=== PATIENT | male | born 1970 ===

== ENCOUNTER 2024-05-22 15:41 | Outpatient (REF) | payer SELFPAY ==
[2024-05-22 16:47] LABS: MANUAL DIFF FLAG NO
[2024-05-22 16:54] LABS: Eosinophils Absolute Auto 0.1 X10*3/uL (0.0-0.4); Eosinophils Percent Auto 3.1 % (0-4); Hematocrit 43.3 % (42.0-52.0); Hemoglobin 15.7 g/dl (14.0-18.0); Imm Gran Abs Auto 0.02 X10*3/uL (0.00-0.03); Imm Gran Pct Auto 0.5 % (0.0-0.4); Lymphocytes Absolute Auto 0.7 X10*3/uL (1.2-4.9); Lymphocytes Percent Auto 19.3 % (20-40); Mean Corpuscular HGB Conc 36.3 g/dl (31.0-36.0); Mean Corpuscular Hemoglobin 32.7 pg (27.0-33.0); Mean Corpuscular Volume 90.2 fL (80.0-98.0); Mean Platelet Volume 9.4 fL (9.4-12.4); Monocytes Absolute Auto 0.5 X10*3/uL (0.1-1.2); Monocytes Percent Auto 12.8 % (2-11); Neutrophils Absolute Auto 2.4 x10*3/uL (2.0-8.3); Neutrophils Percent Auto 63.3 % (45-73); Platelet Count 224 X10*3/uL (160-400); Red Cell Distribution Width 14.6 % (11.0-16.0); White Blood Count 3.8 X10*3/uL (4.8-10.8)
[2024-05-22 17:28] LABS: Alanine Aminotransferase 39 U/L (0-40); Albumin Level 4.3 g/dL (3.5-5.0); Alkaline Phosphatase 109 U/L (39-117); Anion Gap 11 (12-20); Aspartate Amino Transferase 31 U/L (5-37); Bilirubin Total 0.4 mg/dL (0.0-1.0); Blood Urea Nitrogen 15 mg/dL (9-16); Calcium 9.2 mg/dL (8.4-10.2); Carbon Dioxide 25 mmol/L (22-29); Chloride 105 mmol/L (96-108); Estimated Glomerular Filt Rate > 60; Glucose Random 83 mg/dL (60-115); Potassium 3.6 mmol/L (3.3-5.1); Sodium 137 mmol/L (135-145); Total Protein 9.7 g/dL (6.5-8.0)
[2024-05-23 07:56] LABS: Syphilis Screen Nonreactive (Nonreactive)
[2024-05-23 08:02] LABS: Hepatitis A Antibody IgG REACTIVE (Nonreactive); ~Hepatitis A Antibody IgG 9.44 S/CO (0.00-0.99)
[2024-05-23 08:04] LABS: HBS Num1 48.46 mIU/mL (0-7.99); HBc Num1 11.26 S/CO (0.00-0.79); HBsAGNum1 0.39 S/CO (0.00-0.99); Hepatitis B Surface Antigen Negative (Negative); ~HepC Num1 2.71 S/CO (0.00-0.79); ~Hepatitis B Surface Antibody REACTIVE (Nonreactive); ~Hepatitis C Antibody Reactive (Nonreactive)
[2024-05-23 10:43] LABS: HBc Num2 11.04 S/CO; HBc Num3 11.06 S/CO; Hepatitis B Core Antibody Reactive (Nonreactive)
[2024-05-23 12:42] LABS: Cytomegalovirus Ab IgG >10.00 U/mL; Cytomegalovirus Ab IgM <30.00 AU/mL
[2024-05-23 15:48] LABS: CT PCR NOT DETECTED (Not Detect.); NG PCR NOT DETECTED (Not Detect.)
[2024-05-24 17:43] LABS: HIV RNA PCR Qn Copies 22 copies/mL (NOT DETECTED); HIV RNA PCR Qn Log Copies 1.34 (NOT DETECTED)
[2024-05-25 21:42] LABS: TS Negative Control Passed; TS Panel A 0; TS Panel B 0; TS Positive Control Passed; TSpotTB Negative (Negative)
[2024-05-26 14:19] LABS: HCV Log PCR <1.18 NOT DETECTED Log IU/mL (NOT DETECTED); HepC Viral Load <15 NOT DETECTED IU/mL (NOT DETECTED)
[2024-05-26 18:58] LABS: Absolute CD3 Count 429 cells/uL (840-3060); Absolute CD4 Count 131 cells/uL (490-1740); Absolute CD8 Count 297 cells/uL (180-1170); Absolute Lymphocytes 668 cells/uL (850-3900); CD4 CD8 Ratio 0.44 (0.86-5.00); Percent CD3 Cells 64 % (57-85); Percent CD4 Cells 20 % (30-61); Percent CD8 Cells 45 % (12-42)
[2024-05-30 02:18] LABS: HIV Genotype NOT DETECTED
[2024-05-30 08:03] LABS: Value of Last HIV Viral Load NG copies/mL
== END 2024-05-22 15:42 | disposition home or self-care (01) ==
LOC: HO.HHCL 15:41
PROVIDERS: Visit Provider Internal Medicine
DX: B20 Human immunodeficiency virus [HIV] disease (principal); Z11.59 Encounter for screening for other viral diseases; Z72.89 Other problems related to lifestyle
CPT/HCPCS: 36415; 80053; 82955; 85025; 86359; 86360; 86481; 86644; 86645; 86704; 86706; 86708; 86780; 86787; 86803; 87340; 87491; 87522; 87536; 87591; 87900; 87901; 87906

== ENCOUNTER 2024-05-23 14:11 | Outpatient (REF) | payer MEDICAID, SELFPAY ==
[2024-05-24 11:35] LABS: Adenovirus PCR Not Detected (Not Detect.); Bordetella parapertussis PCR Not Detected (Not Detect.); Bordetella pertussis PCR Not Detected (Not Detect.); Chlamydia pneumoniae PCR Not Detected (Not Detect.); Coronavirus 229E PCR Not Detected (Not Detect.); Coronavirus HKU1 PCR Not Detected (Not Detect.); Coronavirus NL63 PCR Not Detected (Not Detect.); Coronavirus OC43 PCR Not Detected (Not Detect.); Human metapneumovirus PCR Not Detected (Not Detect.); Influenza A PCR Not Detected (Not Detect.); Influenza B PCR Not Detected (Not Detect.); Mycoplasma pneumoniae PCR Not Detected (Not Detect.); Parainfluenza 1 PCR Not Detected (Not Detect.); Parainfluenza 2 PCR Not Detected (Not Detect.); Parainfluenza 3 PCR Not Detected (Not Detect.); Parainfluenza 4 PCR Not Detected (Not Detect.); RSV PCR Detected (Not Detect.); Rhino/Enterovirus PCR Not Detected (Not Detect.)
[2024-05-24 12:46] LABS: SARS-CoV-2 PCR Not Detected (Not Detect.)
== END 2024-05-23 14:12 | disposition home or self-care (01) ==
LOC: HO.HHCLNP 14:11
PROVIDERS: Visit Provider Family Medicine
DX: J06.9 Acute upper respiratory infection, unspecified (principal); Z11.52 Encounter for screening for COVID-19; Z13.83 Encounter for screening for respiratory disorder NEC
CPT/HCPCS: 87633

== ENCOUNTER 2024-05-27 12:02 | Emergency (ER) | payer OTHER, SELFPAY ==
--- NOTE | ~2024-05-27 | XR_ITS ---
EXAMINATION: XR CHEST CLINICAL INFORMATION: SOB COMPARISON: None available. TECHNIQUE: 2 views of the chest were obtained. FINDINGS: Pulmonary reticular pattern with the patchy and haziness in the right lower lung lobe. No pneumothorax. No pleural effusion. Cardiomediastinal silhouette is normal in size. Osseous structures are intact. XR/XR chest 2V IMPRESSION: Concerning multifocal pneumonia involving mostly the right lower lung lobe. Electronically signed by: Carlitos Leong MD 05/27/2024 01:20 PM EST
[2024-05-27 12:13] VITALS: BP 169/111; PULSE 77; RESP 20; TEMP 36.6; O2SAT 99; BMI 24.7
--- NOTE | 2024-05-27 12:17 | ECG_ITS ---
Test Reason : hypertension Blood Pressure : */* mmHG Vent. Rate : 67 BPM Atrial Rate : 67 BPM P-R Int : 204 ms QRS Dur : 84 ms QT Int : 396 ms P-R-T Axes : 43 49 40 degrees QTcB Int : 418 ms Normal sinus rhythm Normal ECG No previous ECGs available Referred By: Generic ED Physician Electronically Signed By: ELI GRISSOM
--- NOTE | 2024-05-27 12:32 | ED_ITS ---
HPI - General Adult General Chief complaint: General Medical Stated complaint: Hi blood pressure Time Seen by Provider: 05/27/24 16:49 Source: patient Mode of arrival: ambulatory Limitations: no limitations History of Present Illness ED Provider: HPI narrative: Patient with history of HIV detectable viral load, last CD4 count of 131 on 05/22/2024, hypertension noncompliant to his HIV medication in the past not taking it for last 1 month also noncompliant to his antihypertension medication as he does not have insurance at this time did not take his medication for last 1 week comes here as unable to get the medication again also been tested positive for RSV on 05/22 still coughing no phlegm no fever no chills comes here to get blood pressure medication does on arrival patient's blood pressure was 169/111 no headache no nausea no vomiting Related Data Previous Rx's ?Medication ?Instructions ?Recorded albuterol sulfate 90 mcg/actuation 2 puff inhalation Q6H PRN 05/27/24 aerosol inhaler shortness of breath or wheezing #8.5 grams amlodipine 5 mg tablet 5 mg PO DAILY #30 tabs 05/27/24 azithromycin 250 mg tablet 250 mg PO DAILY 4 days #4 tabs 05/27/24 (Zithromax) benzonatate 200 mg capsule 200 mg PO TID PRN cough #30 caps 05/27/24 cefuroxime axetil 500 mg tablet 500 mg PO BID 7 days #14 tabs 05/27/24 Allergies Allergy/AdvReac Type Severity Reaction Status Date / Time Penicillins Allergy Rash Verified 05/27/24 12:17 Review of Systems 2 Review of Systems: Yes all other systems are reviewed and are negative [facility] Past Medical History Medical History (Updated 05/27/24 @ 19:54 by Brandon Garcia MD) HIV (human immunodeficiency virus infection) Physical Exam ED Vital Signs: Vital Signs - 24 hr 05/27/24 12:13 05/27/24 16:13 05/27/24 17:40 Temperature 97.9 F 97.7 F Pulse Rate 77 90 Respiratory Rate 20 16 Blood Pressure 169/111 H 155/106 H 162/115 H Pulse Oximetry 99 95 Oxygen Delivery Method Room Air Room Air 05/27/24 18:04 05/27/24 19:16 Temperature 98.6 F Pulse Rate 83 83 Respiratory Rate 18 18 Blood Pressure 162/115 H Pulse Oximetry 97 Oxygen Delivery Method Room Air BMI result Body Mass Index 24.7 Appearance: Alert. Oriented X3. No acute distress. Eyes: No pallor or ictal ENT: Pharynx normal. Oral Mucosa moist Neck: Normal inspection. Neck supple. CVS: Normal heart rate and rhythm. Pulses normal. Respiratory: No respiratory distress. Equal air entry bilateral, bilateral prolonged expiration with occasional rhonchi coughing frequently Abdomen: Soft and nontender. Bowel sounds are present, no mass palpable, no CVA tenderness Skin: Skin warm and dry. Normal skin color. Normal skin turgor. Extremities: No lower extremity edema. No calf tenderness Neuro: Oriented X 3. No motor deficit. No sensory deficit.No cerebellar signs , cranial nerves II-XII intact Medications Administered Discontinued Medications Generic Name Dose Route Start Last Admin Trade Name Freq PRN Reason Stop Dose Admin Albuterol Sulfate 2 puff 05/27/24 17:05/27/24 17:41 Albuterol Sulfate 90 Mcg 8 Gm Inhaler INHALE 05/27/24 17:26 2 puff ONCE ONE Administration Amlodipine Besylate 5 mg 05/27/24 17:25 05/27/24 17:40 Amlodipine Besylate 5 Mg Tablet PO 05/27/24 17:26 5 mg ONCE ONE Administration Protocol Azithromycin 500 mg 05/27/24 17:25 05/27/24 17:40 Azithromycin 500 Mg Tablet PO 05/27/24 17:26 500 mg ONCE ONE Administration Benzonatate 200 mg 05/27/24 17:47 05/27/24 17:51 Benzonatate 100 Mg Capsule PO 05/27/24 17:48 200 mg ONCE ONE Administration Cefuroxime Axetil 500 mg 05/27/24 17:25 05/27/24 17:40 Cefuroxime Axetil 500 Mg Tablet PO 05/27/24 17:26 500 mg ONCE ONE Administration Albuterol Sulfate 2.5 mg/ 0 mg 05/27/24 17:05/27/24 18:01 Albuterol/Ipratropium 3 ml INHALE 05/27/24 17:26 1 dose ONCE ONE Administration Dexamethasone 10 mg 05/27/24 17:25 05/27/24 17:40 Dexamethasone 2 Mg Tablet PO 05/27/24 17:26 10 mg ONCE ONE Administration Guaifenesin/Codeine Phosphate 10 ml 05/27/24 17:26 05/27/24 17:44 Guaifen/Codeine Sf 200/20/10ml 10 Ml Liquid PO 05/27/24 17:27 Not Given ONCE ONE Medical Decision Making Medical Decision Making [facility] Narrative: Patient with HIV with RSV infection afebrile saturating 95% at room air chest x- ray showed infiltrate specially in the right lung at this time patient is not toxic will give him inhaler and short course of antibiotics to cover superadded infection will also give him a dose of amlodipine Lab Data [facility] Lab Attestation statement: I reviewed the patient's lab results. 05/27/24 12:53 05/27/24 12:53 Labs: Lab Results 05/27/24 Range/Units 12:53 WBC 4.8 (4.8-10.8) X10*3/uL RBC 4.79 (4.60-5.80) X10*6/uL Hgb 15.6 (14.0-18.0) g/dl Hct 42.5 (42.0-52.0) % MCV 88.7 (80.0-98.0) fL MCH 32.6 (27.0-33.0) pg MCHC 36.7 H (31.0-36.0) g/dl RDW 13.9 (11.0-16.0) % Plt Count 160 D (160-400) X10*3/uL MPV 8.6 L (9.4-12.4) fL Immature Gran % (Auto) 0.2 (0.0-0.4) % Neut % (Auto) 56.4 (45-73) % Lymph % (Auto) 34.9 (20-40) % Kleberg % (Auto) 5.8 (2-11) % Eos % (Auto) 2.3 (0-4) % Baso % (Auto) 0.4 (0-2) % Lymph # (Auto) 1.7 (1.2-4.9) X10*3/uL Kleberg # (Auto) 0.3 (0.1-1.2) X10*3/uL Eos # (Auto) 0.1 (0.0-0.4) X10*3/uL Baso # (Auto) 0.0 (0.0-0.2) X10*3/uL Abs Immat Gran (auto) 0.01 (0.00-0.03) X10*3/uL Absolute Neuts (auto) 2.7 (2.0-8.3) x10*3/uL Absolute Nucleated RBC 0.000 (0.0-0.012) X10*3/uL Nucleated RBC % (auto) 0.0 (0.0-0.2) /100WBC Sodium 139 (135-145) mmol/L Potassium 3.9 (3.3-5.1) mmol/L Chloride 105 (96-108) mmol/L Carbon Dioxide 27 (22-29) mmol/L Anion Gap 11 L (12-20) BUN 20 H (9-16) mg/dL Creatinine 0.87 (0.5-1.4) mg/dL Estim Creat Clear Calc 120.5 Estimated GFR > 60 Random Glucose 92 (60-115) mg/dL Calcium 8.9 (8.4-10.2) mg/dL Total Bilirubin 0.6 (0.0-1.0) mg/dL AST 44 H (5-37) U/L ALT 53 H (0-40) U/L Alkaline Phosphatase 107 (39-117) U/L Total Protein 9.7 H (6.5-8.0) g/dL Albumin 4.1 (3.5-5.0) g/dL Influenza Type A (PCR) NEGATIVE (Negative) Influenza Type B (PCR) NEGATIVE (Negative) RSV RNA Qual (PCR) POSITIVE A (Negative) SARS-CoV-2 RNA (RT-PCR) NEGATIVE (Negative) Radiology Impression Discussion of test interpretation with radiology: I have reviewed the radiologist's reading. Radiologist Impression: [address] [address] XRay Report Signed Patient: Angel Blue MR#: [id number] : 1970 Acct:[id number] Age/Sex: 53 / M ADM Date: 05/27/24 Loc: .ED Attending Dr: Ordering Physician: Elizabeth Juan Date of Service: 05/27/24 Procedure(s): XR chest 2V Accession Number(s): [id number] cc: Elizabeth Juan; Physician,Unknown ~ EXAMINATION: XR CHEST CLINICAL INFORMATION: SOB COMPARISON: None available. TECHNIQUE: 2 views of the chest were obtained. FINDINGS: Pulmonary reticular pattern with the patchy and haziness in the right lower lung lobe. No pneumothorax. No pleural effusion. Cardiomediastinal silhouette is normal in size. Osseous structures are intact. XR/XR chest 2V IMPRESSION: Concerning multifocal pneumonia involving mostly the right lower lung lobe. Electronically signed by: Carlitos Leong MD 05/27/2024 01:20 PM [facility] Discharge Plan Discharge Clinical Impression: Respiratory syncytial virus (RSV) bronchiolitis, Hypertension Patient Disposition: Home, Self-Care Instructions: Respiratory Syncytial Virus (ED), Acute Bronchitis (ED), Chronic Hypertension (ED) Additional Instructions: Your have pneumonia , bronchitis from viral infection Take antibiotics and use inhaler Medication for blood pressure as prescribed your blood pressure should be less than 135/85 Report to the ER if increased shortness a breath Cough drops as prescribed Prescriptions: New benzonatate 200 mg capsule 200 mg PO TID PRN (Reason: cough) Qty: 30 0RF cefuroxime axetil 500 mg tablet 500 mg PO BID 7 Days Qty: 14 0RF azithromycin [Zithromax] 250 mg tablet 250 mg PO DAILY 4 Days Qty: 4 0RF Rx Instructions: start on day 2 of therapy amlodipine 5 mg tablet 5 mg PO DAILY Qty: 30 0RF albuterol sulfate 90 mcg/actuation HFA aerosol inhaler 2 puff inhalation Q6H PRN (Reason: shortness of breath or wheezing) Qty: 8.5 0RF Interventions: ED Discharge Assessment Last Done: 05/27/24 19:16 Discharge Date/Time: 05/27/24 19:17 Print Language: Moroccan
[2024-05-27 12:57] LABS: MANUAL DIFF FLAG NO
[2024-05-27 12:58] LABS: Basophils Percent Auto 0.4 % (0-2); Eosinophils Absolute Auto 0.1 X10*3/uL (0.0-0.4); Eosinophils Percent Auto 2.3 % (0-4); Hematocrit 42.5 % (42.0-52.0); Hemoglobin 15.6 g/dl (14.0-18.0); Imm Gran Abs Auto 0.01 X10*3/uL (0.00-0.03); Imm Gran Pct Auto 0.2 % (0.0-0.4); Lymphocytes Absolute Auto 1.7 X10*3/uL (1.2-4.9); Lymphocytes Percent Auto 34.9 % (20-40); Mean Corpuscular HGB Conc 36.7 g/dl (31.0-36.0); Mean Corpuscular Hemoglobin 32.6 pg (27.0-33.0); Mean Corpuscular Volume 88.7 fL (80.0-98.0); Mean Platelet Volume 8.6 fL (9.4-12.4); Monocytes Absolute Auto 0.3 X10*3/uL (0.1-1.2); Monocytes Percent Auto 5.8 % (2-11); Neutrophils Absolute Auto 2.7 x10*3/uL (2.0-8.3); Neutrophils Percent Auto 56.4 % (45-73); Platelet Count 160 X10*3/uL (160-400); Red Blood Count 4.79 X10*6/uL (4.60-5.80); Red Cell Distribution Width 13.9 % (11.0-16.0); SCAN SMEAR FLAG 1; White Blood Count 4.8 X10*3/uL (4.8-10.8)
[2024-05-27 13:17] LABS: Alanine Aminotransferase 53 U/L (0-40); Albumin Level 4.1 g/dL (3.5-5.0); Alkaline Phosphatase 107 U/L (39-117); Anion Gap 11 (12-20); Aspartate Amino Transferase 44 U/L (5-37); Bilirubin Total 0.6 mg/dL (0.0-1.0); Blood Urea Nitrogen 20 mg/dL (9-16); Calcium 8.9 mg/dL (8.4-10.2); Carbon Dioxide 27 mmol/L (22-29); Chloride 105 mmol/L (96-108); Creatinine Clr Calc Pharmacy 120.5; Estimated Glomerular Filt Rate > 60; Glucose Random 92 mg/dL (60-115); Potassium 3.9 mmol/L (3.3-5.1); Sodium 139 mmol/L (135-145); Total Protein 9.7 g/dL (6.5-8.0)
[2024-05-27 13:44] LABS: Influenza A PCR NEGATIVE (Negative); Influenza B PCR NEGATIVE (Negative); Resp Syncy Virus RNA Qual PCR POSITIVE (Negative); SARS COV2 PCR INHOUSE NEGATIVE (Negative)
[2024-05-27 16:13] VITALS: BP 155/106; PULSE 90; RESP 16; TEMP 36.5; O2SAT 95
[2024-05-27 17:40] VITALS: BP 162/115
[2024-05-27] MEDS: amLODIPine Besylate 5 MG TABLET PO (17:40)
[2024-05-27] MEDS: dexAMETHasone 2 MG TABLET 10 MG PO (17:40)
[2024-05-27] MEDS: Azithromycin 500 MG TABLET PO (17:40)
[2024-05-27] MEDS: cefuroxime axetiL 500 MG TABLET PO (17:40)
[2024-05-27] MEDS: Albuterol Sulfate 90 MCG 8 GM INHALER 2 PUFF INHALE (17:41)
[2024-05-27] MEDS: Benzonatate 100 MG CAPSULE 200 MG PO (17:51)
[2024-05-27] MEDS: Albuterol Sulfate 2.5 MG, Albuterol/Iprat 2.5/0.5MG 3 ML 3 ML INHALE (18:01)
[2024-05-27 18:04] VITALS: PULSE 83; RESP 18; O2SAT 93
[2024-05-27 19:16] VITALS: BP 162/115; PULSE 83; RESP 18; TEMP 37; O2SAT 97
== END 2024-05-27 19:17 | disposition home or self-care (01) ==
PROVIDERS: Physician Assistant Medical; Emergency Provider Internal Medicine
DX: J21.0 Acute bronchiolitis due to respiratory syncytial virus (principal); I10 Essential (primary) hypertension; R06.02 Shortness of breath; R05.9 Cough, unspecified; B20 Human immunodeficiency virus [HIV] disease; Z03.818 Encounter for observation for suspected exposure to other biological agents ruled out; Z91.148 Patient's other noncompliance with medication regimen for other reason
CPT/HCPCS: 0241U; 36415; 71046; 80053; 85025; 93005; 94640; 99284; J8540

== ENCOUNTER → 2024-05-27 12:17 | Outpatient (BNV) | payer OTHER, SELFPAY | PROVIDERS: Emergency Provider Internal Medicine; Visit Provider Internal Medicine | DX: I10 Essential (primary) hypertension (principal) | CPT/HCPCS: 93010 ==

== ENCOUNTER → 2024-05-27 12:38 | Outpatient (BNV) | payer MEDICARE, MEDICAID, SELFPAY | PROVIDERS: Visit Provider Radiology Diagnostic Radiology | DX: R05.9 Cough, unspecified (principal) | CPT/HCPCS: 71046 ==

== ENCOUNTER 2024-06-03 13:43 | Emergency (ER) | payer MEDICARE, SELFPAY ==
--- NOTE | ~2024-06-03 | XR_ITS ---
EXAMINATION: XR CHEST CLINICAL INFORMATION: cough, weakness COMPARISON: 05/27/2024. TECHNIQUE: 2 views of the chest were obtained. FINDINGS: The cardiac, hilar, and mediastinal contours are normal. The lungs demonstrate stable subtle opacity right lung base and a more linear appearing left upper lobe opacity, without change. These may be chronic in nature. These are not well seen on the lateral projection. There is no pneumothorax or pleural effusion. There is no focal osseous or soft tissue abnormality. Cholecystectomy clips noted. XR/XR chest 2V IMPRESSION: No significant interval change. Subtle opacity right base and linear opacity left upper lobe persist and may be chronic in nature. Consider evaluation with CT if clinical management would be altered. Electronically signed by: Ry Wang MD 06/03/2024 02:56 PM DAVID PUGA
--- NOTE | 2024-06-03 14:07 | ED_ITS ---
HPI - General Adult General Chief complaint: Recheck/Abnormal Lab/Rx Stated complaint: CP,BOWERS,NEW BP MED,FROM WALK IN PER EMS Time Seen by Provider: 06/03/24 14:07 Source: patient and EMS Mode of arrival: EMS Limitations: no limitations History of Present Illness ED Provider: Nessa Pandya PA-C HPI narrative: Patient is a 53 year old assigned male at with a history of HTN and recent RSV diagnosis presenting to the emergency department today with a headache and elevated blood pressure reading at the walk in clinic. Patient states that he had a headache, went to the walk in clinic, and they told him his blood pressure was high so he should come here. Patient denies any dizziness, lightheadedness, abdominal pain, nausea, vomiting, fever, chills, blurry vision, double vision, loss of vision, chest pain, difficulty breathing, shortness of breath, back pain, night sweats, pain with urination, increased urinary frequency, increased urinary urgency, blood in his urine or stool, syncope or a near syncopal episode, recent trauma or falls, bowel incontinence, bladder incontinence, or any other complaints at this time. Relieving factors: none Exacerbating factors: none Associated symptoms: denies other symptoms Treatments prior to arrival: none Related Data Previous Rx's ?Medication ?Instructions ?Recorded albuterol sulfate 90 mcg/actuation 2 puff inhalation Q6H PRN 05/27/24 aerosol inhaler shortness of breath or wheezing #8.5 grams amlodipine 5 mg tablet 5 mg PO DAILY #30 tabs 05/27/24 azithromycin 250 mg tablet 250 mg PO DAILY 4 days #4 tabs 05/27/24 (Zithromax) benzonatate 200 mg capsule 200 mg PO TID PRN cough #30 caps 05/27/24 cefuroxime axetil 500 mg tablet 500 mg PO BID 7 days #14 tabs 05/27/24 Allergies Allergy/AdvReac Type Severity Reaction Status Date / Time Penicillins Allergy Rash Verified 06/03/24 14:43 Review of Systems 2 Constitutional: Constitutional: Reports no additional constitutional complaints, Denies chills, Denies fever(s), Reports headache(s) and Denies night sweats Eyes: Eyes: Reports no additional eye complaints, Denies blurry vision, Denies change in vision, Denies diplopia, Denies eye discharge, Denies loss of vision and Denies eye pain ENT: Denies dizziness and Reports headache(s) Cardiovascular: Cardiovascular: Reports no additional cardiovascular complaints, Denies chest pain, Denies lightheadedness, Denies Loss of Consciousness and Denies dyspnea Respiratory: Respiratory: Reports no additional respiratory complaints and Denies dyspnea Gastrointestinal: Gastrointestinal: Reports no additional gastrointestinal complaints, Denies abdominal pain, Denies melena, Denies hematochezia, Denies change in bowel habits and Denies change in stool character Genitourinary: Genitourinary: Reports no additional male genitourinary complaints, Denies hematuria, Denies oliguria, Denies difficulty urinating, Denies dysuria, Denies urinary frequency, Denies urinary hesitancy, Denies urinary incontinence and Denies urinary urgency Musculoskeletal: Musculoskeletal: Reports no additional musculoskeletal complaints, Denies numbness and Denies tingling Neurologic: Denies dizziness, Reports headache(s), Denies loss of vision, Denies numbness and Denies tingling Psychiatric: Psychiatric: Reports no additional psychiatric complaints Endocrine: Endocrine: Reports no additional endocrine complaints Hematologic/Lymphatic: Hematologic/Lymphatic: Reports no additional hematologic/lymphatic complaints Allergic/Immunologic: Allergic/Immunologic: Reports no additional allergic/immunologic complaints PMFSH Past Medical History Attestation statement: The following information was validated with the patient. Source: old records reviewed and nursing notes reviewed Medical History HIV (human immunodeficiency virus infection) Social History Social History Advance Directives: No Advance Directives Information Provided: No Physical Exam ED Vital Signs: Vital Signs - 24 hr 06/03/24 14:15 06/03/24 15:27 06/03/24 16:19 Temperature 97.9 F 97.4 F 97.4 F Pulse Rate 81 73 73 Respiratory Rate 16 16 16 Blood Pressure 121/80 121/81 121/81 Pulse Oximetry 96 98 98 Oxygen Delivery Method Room Air Room Air Room Air BMI result Body Mass Index 25.0 Const General: cooperative, no acute distress, alert and awake Nutritional Appearance: well nourished Orientation/consciousness: patient oriented x3 Limitations: no limitations HENMT Head: Yes normal to inspection and Yes atraumatic Ears: hearing grossly normal bilaterally and external ears normal General nose exam: Normal external nose present, no nasal discharge noted and no epistaxis Face and sinus: Yes normal facial exam, No abrasion and No laceration Mouth: Normal oral and palatal mucosa present, no drooling and no muffled voice Eyes General: appearance normal, both eyes and all related structures Periorbital: periorbital findings normal Eyelids: Yes eyelids normal Conjunctivae: conjunctivae normal Pupils: Equal, round and reactive pupils present EOM: EOMs intact bilaterally Neck Neck: Yes normal visual inspection, Yes full ROM and Yes no lymphadenopathy Chest Chest palpation & inspection: normal inspection of the chest Resp Effort & Inspection: normal respiratory effort and able to speak in complete sentences GI Inspection: Yes normal to inspection Neuro General: patient oriented x3, moves all extremities and CN's II-XI intact bilaterally Cranial nerves: Yes Equal, round and reactive pupils present Cognition (Neuro): normal cognition Extrem General: Yes normal to inspection, Yes full ROM and Yes capillary refill normal Psych Appearance: grossly normal Mental Status: mental status grossly normal Affect: normal affect Attitude: cooperative Thought process: Normal thought process present Thought content: Normal thought content present Insight: Good insight present (Psych) Medical Decision Making Medical Decision Making MDM Narrative: Patient is a 53 year old assigned male at with a history of HTN presenting to the emergency department today with a headache and concern of high blood pressure. Patient's physical exam was unremarkable. Patient's blood work was unremarkable. Patient's EKG was unremarkable. Patient's chest x-ray showed no acute process. Patient's RSV test was still positive. I explained my physical exam findings as well as all test results to the patient. I answered all questions asked by the patient. Patient was normotensive his entire time in the department today with no focal deficits or signs / symptoms concerning of hypertensive urgency / emergency. I stressed the importance of the patient taking his medication as directed (either prescribed or as the over the counter packaging recommends). I stressed the importance of the patient following up with his primary care provider. I stressed the importance of the patient returning to the emergency department immediately if his symptoms were to worsen or if he were to develop any dizziness, shortness of breath, difficulty breathing, chest pain, blurry vision, loss of vision, nausea, vomiting, abdominal pain, fever, chills, back pain, or any other complaints. Patient verbalized agreement and understanding with this treatment plan and discharge. Differential Diagnosis Differential Diagnoses: The differential diagnosis associated with the presentation includes Headache Hypertension RSV Viral illness Admission/Observation Consideration of admission/observation: Escalation of care including admission/observation considered Patient would have been admitted to the hospital had his work up had any findings where hospital admission was appropriate and his clinical presentation warranted hospital admission. Lab Data [facility] Lab Attestation statement: I reviewed the patient's lab results. My interpretation of these results are in the [facility] Rationale portion of this note. 06/03/24 14:56 06/03/24 14:56 Labs: Lab Results 06/03/24 Range/Units 14:56 WBC 6.3 (4.8-10.8) X10*3/uL RBC 4.61 (4.60-5.80) X10*6/uL Hgb 15.1 (14.0-18.0) g/dl Hct 42.9 (42.0-52.0) % MCV 93.1 (80.0-98.0) fL MCH 32.8 (27.0-33.0) pg MCHC 35.2 (31.0-36.0) g/dl RDW 13.6 (11.0-16.0) % Plt Count 233 D (160-400) X10*3/uL MPV 8.7 L (9.4-12.4) fL Immature Gran % (Auto) 1.8 H (0.0-0.4) % Neut % (Auto) 54.7 (45-73) % Lymph % (Auto) 30.1 (20-40) % Tyrrell % (Auto) 8.8 (2-11) % Eos % (Auto) 3.3 (0-4) % Baso % (Auto) 1.3 (0-2) % Lymph # (Auto) 1.9 (1.2-4.9) X10*3/uL Tyrrell # (Auto) 0.6 (0.1-1.2) X10*3/uL Eos # (Auto) 0.2 (0.0-0.4) X10*3/uL Baso # (Auto) 0.1 (0.0-0.2) X10*3/uL Abs Immat Gran (auto) 0.11 H (0.00-0.03) X10*3/uL Absolute Neuts (auto) 3.4 (2.0-8.3) x10*3/uL Absolute Nucleated RBC 0.000 (0.0-0.012) X10*3/uL Nucleated RBC % (auto) 0.0 (0.0-0.2) /100WBC PT 12.4 (10.9-12.4) SEC INR 1.1 (0.9-1.1) APTT 29.6 (26.0-36.8) SEC Sodium 141 (135-145) mmol/L Potassium 4.0 (3.3-5.1) mmol/L Chloride 105 (96-108) mmol/L Carbon Dioxide 29 (22-29) mmol/L Anion Gap 11 L (12-20) BUN 19 H (9-16) mg/dL Creatinine 1.27 (0.5-1.4) mg/dL Estim Creat Clear Calc 82.5 Estimated GFR 59 Random Glucose 77 (60-115) mg/dL Calcium 9.2 (8.4-10.2) mg/dL Magnesium 2.2 (1.6-2.6) mg/dL Total Bilirubin 0.2 (0.0-1.0) mg/dL AST 22 (5-37) U/L ALT 30 (0-40) U/L Alkaline Phosphatase 86 (39-117) U/L Troponin I High Sens < 2.7 (<3.5-35.0) ng/L Total Protein 8.6 H (6.5-8.0) g/dL Albumin 3.7 (3.5-5.0) g/dL Influenza Type A (PCR) NEGATIVE (Negative) Influenza Type B (PCR) NEGATIVE (Negative) RSV RNA Qual (PCR) POSITIVE A (Negative) SARS-CoV-2 RNA (RT-PCR) NEGATIVE (Negative) Independent Interpretation I performed an independent interpretation of an: EKG and Plain X-Ray Interpretation: My interpretation is in agreement with the radiologist's impression of this imaging study. L EXAMINATION: XR CHEST CLINICAL INFORMATION: cough, weakness COMPARISON: 05/27/2024. TECHNIQUE: 2 views of the chest were obtained. FINDINGS: The cardiac, hilar, and mediastinal contours are normal. The lungs demonstrate stable subtle opacity right lung base and a more linear appearing left upper lobe opacity, without change. These may be chronic in nature. These are not well seen on the lateral projection. There is no pneumothorax or pleural effusion. There is no focal osseous or soft tissue abnormality. Cholecystectomy clips noted. XR/XR chest 2V IMPRESSION: No significant interval change. Subtle opacity right base and linear opacity left upper lobe persist and may be chronic in nature. Consider evaluation with CT if clinical management would be altered. Electronically signed by: Ry Wang MD 06/03/2024 02:56 PM EST Dictated By: Ry Wang MD Signed By: Electronically signed by Ry Wang MD 06/03/24 1456 I independently interpreted this EKG and am in agreement with the below findings: Vent. Rate: 83 BPM Atrial Rate: 83 BPM P-R Int 184 ms QRS Dur: 86 ms QT Int 362 ms P-R-T Axes: 54 47 42 degrees QTcB Int: 425 ms Normal sinus rhythm Nonspecific ST abnormality When compared with ECG of 27-May-2024 12:30, No significant change was found DD/ 1414 Radiology Impression Discussion of test interpretation with radiology: I have reviewed the radiologist's reading. Independent Historian Clinical information obtained from an independent historian. History obtained from or confirmed by: EMS (EMS provided additional history and confirmed the history provided by the patient.) Discharge Plan Discharge Clinical Impression: Headache, Respiratory syncytial virus (RSV) Patient Disposition: Home, Self-Care Instructions: Respiratory Syncytial Virus (ED), Acute Headache (DC) Additional Instructions: Follow up with your primary care provider. Return to the emergency department immediately if your symptoms worsen or if you develop any dizziness, shortness of breath, difficulty breathing, chest pain, blurry vision, loss of vision, nausea, vomiting, abdominal pain, fever, chills, back pain, or any other complaints. Prescriptions: No Action benzonatate 200 mg capsule 200 mg PO TID PRN (Reason: cough) Qty: 30 0RF cefuroxime axetil 500 mg tablet 500 mg PO BID 7 Days Qty: 14 0RF azithromycin [Zithromax] 250 mg tablet 250 mg PO DAILY 4 Days Qty: 4 0RF Rx Instructions: start on day 2 of therapy amlodipine 5 mg tablet 5 mg PO DAILY Qty: 30 0RF albuterol sulfate 90 mcg/actuation HFA aerosol inhaler 2 puff inhalation Q6H PRN (Reason: shortness of breath or wheezing) Qty: 8.5 0RF [place] [facility] [facility] [place] (Call to establish and follow up with a primary care provider. If you already have a primary care provider, please follow up with them.) [facility] [place]Provider Group] (Call to establish and follow up with a primary care provider. If you already have a primary care provider, please follow up with them.) [facility] [place] Group] (Call to establish and follow up with a primary care provider. If you already have a primary care provider, please follow up with them.) Stand Alone Forms: Work/School Release Interventions: ED Discharge Assessment Last Done: 06/03/24 16:19 Discharge Date/Time: 06/03/24 16:21 Print Language: Sinhala
--- NOTE | 2024-06-03 14:08 | ECG_ITS ---
Test Reason : CHEST PAIN Blood Pressure : */* mmHG Vent. Rate : 83 BPM Atrial Rate : 83 BPM P-R Int : 184 ms QRS Dur : 86 ms QT Int : 362 ms P-R-T Axes : 54 47 42 degrees QTcB Int : 425 ms Normal sinus rhythm Nonspecific ST abnormality Abnormal ECG When compared with ECG of 27-May-2024 12:30, No significant change was found Referred By: Nessa Pandya Electronically Signed By: Bennett Gusman
[2024-06-03 14:15] VITALS: BP 111/70; BP 121/80; PULSE 108; PULSE 81; RESP 16; TEMP 36.6; O2SAT 96; O2SAT 97
[2024-06-03 14:42] VITALS: BMI 25.0
--- OUTSIDE RECORDS SUMMARY | 2024-06-03 14:53 | XMS_ITS | Continuity of Care Document ---
Author Organization [facility] Address [address] [place] [address] Phone Care Team Providers Care Concrete Gun Operator Name Role Phone Diana Ribeiro MD Unavailable Unavailable Advance Directives Directive Yes / No Effective Date File Name No Information Encounters Encounter Description Practice Location Reason(s) For Visit Diagnoses Date Provider Providers Copied on Encounter [facility], [address], [place], [place], [address], [place] tel:[phone] ([facility]) [facility] No Information Quintinlenin Ortiz. [address], [place], [address] , [place]. tel:[phone] Family History Family Member Type Diagnosis Age At Onset No Information Payers Payer name Insurance type Covered democrat ID Authoriza tiwilder(s) [facility] 015 MB [id number] Social History Type Description Quantity Date Captured Comments Sex Male Smoking Status No Information Chief Complaint And Reason For Visit No Information Reason For Referral Reason For Referral No Information History Of Present Illness Encounter Date Complaint History Of Prese nt Illness No Information Functional Status Date Functional Assessmen t No Information Instructions Date Instruction Additional Infor mation No Information Assessments Type Assessment Date No Information Patient Care Teams Name Effective Dates (start - stop) Status Members No Information
--- OUTSIDE RECORDS SUMMARY | 2024-06-03 14:53 | XMS_ITS | Continuity of Care Document ---
Author Organization [employer] Address [address] [place] [address] Phone Care Team Providers Care Energy Advisor Name Role Phone Unavailable Unavailable Unavailable Allergies, Adverse Reactions, Alerts Substance Reaction Status Criticality Penicillins Rash Active No Information Medications Medication Instructions Dosage Effective Dates (start - stop) Status Comments Levitra 2.5 mg tablet take 1 tablet by oral route every 72 hours as needed approximately 1 hour before sexual activity - Active amlodipine 10 mg tablet take 1 tablet by oral route every day 10 MG - Active Truvada 200 mg-300 mg tablet take 1 tablet by oral route every day 1.00 tablet - Active Prezista 800 mg tablet take 1 tablet by oral route every day with food 800 MG - Active Norvir 100 mg tablet take 1 tablet by oral route every day 100 MG - Active Procedures Procedure Date GLUCOSE BLOOD TEST Venipuncture URINALYSIS AUTO W/O SCOPE Office/outpatient visit,est, mod 2016 SYST BP = 140 MM HG6 IT BODY MASS INDEX DOCD DIAST BP = 90 MM HG Automated hemogram (CBC) Infct antign, HIV-1, quantification Metabolic panel, comprehensive 17 T cells, absolute CD4 count Venipuncture T cells, absolute CD4 count Automated hemogram (CBC) Metabolic panel, comprehensive 16 Infct antign, HIV-1, quantification Lipid Panel Office/outpatient visit,[facility] 2015 Advance Directives Directive Yes / No Effective Date File Name No Information Encounters Encounter Description Practice Location Reason(s) For Visit Diagnoses Date Provider Providers Copied on Encounter [employer] [facility] [address], [place], [address] tel:[phone] [facility] No Information 7 No Information [facility], [address] [place], [id number] tel:[phone] [facility] No Information 7 No Information [facility]pa [facility], [address] [place], [address] tel:[phone] [facility] Comments (chief complaint)H IV (follow up) (chief complaint)H ypertension (FP) (chief complaint) Encounter for screening for diabetes mellitusHuman immunodeficiency virus [HIV] diseaseErectile dysfunction, unspecified erectile dysfunction typeEssential hypertensionBody mass index (BMI) 26.0-26.9, adult 7 No Information Office/outpa tient visit,[facility], [address], [place], [address] tel:[phone] [facility] Comments (chief complaint)k nee pain (chief complaint)C hronic Conditions (chief complaint) Human immunodeficiency virus [HIV] diseaseChronic pain of right kneeOther chronic painVision impairment 6 No Information Family History Family Member Type Diagnosis Age At Onset Mother Problem (finding) diabetes mellitus type 2 Father Problem (finding) diabetes mellitus type 2 Mother Problem (finding) hypertension Father Problem (finding) hypertension Payers Payer name Insurance type Covered libertarian ID Authoriza tion(s) [employer] BL [id number] Social History Type Description Quantity Date Captured Comments Alcohol Use Details Unknown Caffeine Use Details Unknown Tobacco Use Status Smoking Status No Information Sex Male Gender Identity Male Plan Of Treatment Date Type Action Status Goal Dietary management education , guidance, and counseling completed Goal Tobacco cessation counseling completed Referral Ordered: referred to Church Worker Eval and treat (related to Vision impairment) ordered Referral Ordered: referred to Sports med [facility] Eval and treat (related to Chronic pain of right knee) ordered History Of Present Illness Encounter Date Complaint History Of Prese nt Illness Nursing Comments SPC follow-up. Needs Rx refills and lab work. Stressed importance of following up every 3 months for labs. Has been taking meds every day. BP 158/110 this visit, has been having headaches since November, has been getting worse recently. Father and mother have hx HTN and cardiac problems. Wants to be checked for DM d/t erectile dysfunction x3 this month. YAAKOV RN HIV (follow up) (comments) Takin g darunavir/r and Truvada, no adverse affects, no missed doses (but took last meds yesterday, now out). Episodes of ED x3 last month, very distressing to pt. No difficulty achieving an erection but difficulty maintaining. This was improved with taking Levitra 5 mg from a friend. Has been having BOWERS. Only sexually active with . Denies any receptive anal intercourse. Hypertension (FP) The symptoms b patricio 6 months ago. The symptoms are/last 6 Months. It is currently a new diagnosis. Risk factors include family history HTN, gout or CAD and male gender. The hypertension is exacerbated by nothing. Associated symptoms include headache. Pertinent negatives include chest pain, dyspnea, epistaxis, hematuria, visual disturbances and vomiting. HIV (follow up) Nursing Comments HIV FOLLOW-UP Chronic Conditions *See Chronic Conditions HPI knee pain Onset: 3 years a go. It occurs occasionally and is stable. Location: right knee. The pain is sharp. Context: there is an injury. Other: Fell down steps. The pain is aggravated by bending, climbing (and descending) stairs and walking. There are no relieving factors. Additional information: Pain is lateral just above the patella. Not releived by Diclofenac or ibuprophen. Functional Status Date Functional Assessmen t No Information Instructions Date Instruction Additional Infor elza Giving encouragement to exercise Related to Body mass index (BMI) 26.0-26.9, adult Dietary management e ducation, guidance, and counseling Related to Body mass index (BMI) 26.0-26.9, adult RTC in 1-2 weeks. Related to Hum an immunodeficiency virus [HIV] disease Assessments Type Assessment Date No Information Patient Care Teams Name Effective Dates (start - stop) Status Members No Information
--- OUTSIDE RECORDS SUMMARY | 2024-06-03 14:53 | XMS_ITS | Continuity of Care Document ---
Author Organization [address] Address [address] [place] [address] Phone Care Team Providers Care Handicraft Or Hobby Shop Manager Name Role Phone Stalin JOY, Shalonda Unavailable Unavailable Procedures Procedure Date ELECTROCARDIOGRAM REPORT INTERP & REPORT ONLY ELECTROCARDIOGRAM REPORT INTERP & REPORT ONLY ELECTROCARDIOGRAM REPORT INTERP & REPORT ONLY Advance Directives Directive Yes / No Effective Date File Name No Information Encounters Encounter Description Practice Location Reason(s) For Visit Diagnoses Date Provider Providers Copied on Encounter [address], [address], [place], [id number], tel:[phone] [facility] No Information Stalin Liz. [address], [address], [address]. tel:[phone] Referring Provider: Shalonda Gant, [address], [place], [address] . tel:[phone] [facility], [address], [address], tel:[phone] [facility] No Information Stalin Liz. [address], [address], [address]. tel:[phone] Referring Provider: Shalonda Gant, [address], [place], [address] . tel:[phone] [id number] - [facility], [address], [place], [place], [address], tel:[phone] [facility] No Information uRma Garcia. [address], [place], [place], [address]. tel:[phone] Referring Provider: Jose Hendrix , [address], [place], [address] . tel:[phone] Family History Family Member Type Diagnosis Age At Onset No Information Payers Payer name Insurance type Covered alliance party ID Authoruyen dobbins(s) [employer] [id number] Tenndare/Medicaid [facility] [id number] Social History Type Description Quantity Date Captured [...]
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
[2024-06-03 15:03] LABS: MANUAL DIFF FLAG NO
[2024-06-03 15:09] LABS: Basophils Absolute Auto 0.1 X10*3/uL (0.0-0.2); Basophils Percent Auto 1.3 % (0-2); Eosinophils Absolute Auto 0.2 X10*3/uL (0.0-0.4); Eosinophils Percent Auto 3.3 % (0-4); Hematocrit 42.9 % (42.0-52.0); Hemoglobin 15.1 g/dl (14.0-18.0); Imm Gran Abs Auto 0.11 X10*3/uL (0.00-0.03); Imm Gran Pct Auto 1.8 % (0.0-0.4); Lymphocytes Absolute Auto 1.9 X10*3/uL (1.2-4.9); Lymphocytes Percent Auto 30.1 % (20-40); Mean Corpuscular HGB Conc 35.2 g/dl (31.0-36.0); Mean Corpuscular Hemoglobin 32.8 pg (27.0-33.0); Mean Corpuscular Volume 93.1 fL (80.0-98.0); Mean Platelet Volume 8.7 fL (9.4-12.4); Monocytes Absolute Auto 0.6 X10*3/uL (0.1-1.2); Monocytes Percent Auto 8.8 % (2-11); Neutrophils Absolute Auto 3.4 x10*3/uL (2.0-8.3); Neutrophils Percent Auto 54.7 % (45-73); Platelet Count 233 X10*3/uL (160-400); Red Blood Count 4.61 X10*6/uL (4.60-5.80); Red Cell Distribution Width 13.6 % (11.0-16.0); White Blood Count 6.3 X10*3/uL (4.8-10.8)
[2024-06-03 15:14] LABS: INTERNATIONAL NORM RATIO 1.1 (0.9-1.1); Prothrombin Time 12.4 SEC (10.9-12.4)
[2024-06-03 15:16] LABS: Partial Thromboplastin Time 29.6 SEC (26.0-36.8)
[2024-06-03 15:27] VITALS: BP 121/81; PULSE 73; RESP 16; TEMP 36.3; O2SAT 98
[2024-06-03 15:36] LABS: Alanine Aminotransferase 30 U/L (0-40); Albumin Level 3.7 g/dL (3.5-5.0); Anion Gap 11 (12-20); Aspartate Amino Transferase 22 U/L (5-37); Bilirubin Total 0.2 mg/dL (0.0-1.0); Blood Urea Nitrogen 19 mg/dL (9-16); Calcium 9.2 mg/dL (8.4-10.2); Carbon Dioxide 29 mmol/L (22-29); Chloride 105 mmol/L (96-108); Creatinine Clr Calc Pharmacy 82.5; Estimated Glomerular Filt Rate 59; Glucose Random 77 mg/dL (60-115); Magnesium 2.2 mg/dL (1.6-2.6); Sodium 141 mmol/L (135-145); Total Protein 8.6 g/dL (6.5-8.0); Troponin-I High Sensitivity < 2.7 ng/L (<3.5-35.0)
[2024-06-03 15:46] LABS: Influenza A PCR NEGATIVE (Negative); Influenza B PCR NEGATIVE (Negative); Resp Syncy Virus RNA Qual PCR POSITIVE (Negative); SARS COV2 PCR INHOUSE NEGATIVE (Negative)
[2024-06-03 16:06] LABS: Alkaline Phosphatase 86 U/L (39-117)
[2024-06-03 16:19] VITALS: BP 121/81; PULSE 73; RESP 16; TEMP 36.3; O2SAT 98
== END 2024-06-03 16:21 | disposition home or self-care (01) ==
PROVIDERS: Physician Assistant Medical; Emergency Provider Emergency Medicine
DX: J22 Unspecified acute lower respiratory infection (principal); B97.4 Respiratory syncytial virus as the cause of diseases classified elsewhere; R07.89 Other chest pain; R51.9 Headache, unspecified; R05.9 Cough, unspecified; Z03.818 Encounter for observation for suspected exposure to other biological agents ruled out; Z79.899 Other long term (current) drug therapy
CPT/HCPCS: 0241U; 71046; 80053; 83735; 84484; 85025; 85610; 85730; 93005; 99283; 99284

== ENCOUNTER → 2024-06-03 14:08 | Outpatient (BNV) | payer MEDICARE, SELFPAY | PROVIDERS: Emergency Provider Emergency Medicine; Visit Provider Radiology Diagnostic Radiology | DX: R05.9 Cough, unspecified (principal) | CPT/HCPCS: 71046 ==

== ENCOUNTER 2024-06-16 10:00 | Emergency (ER) | payer MEDICARE, SELFPAY ==
[2024-06-16 10:10] VITALS: BP 107/75; PULSE 97; RESP 18; TEMP 36.6; O2SAT 99; BMI 25.2
--- OUTSIDE RECORDS SUMMARY | 2024-06-16 10:28 | XMS_ITS | Continuity of Care Document ---
Author Organization [address] Address [address] [place] [address] Phone Care Team Providers Care Dragline Operator Helper Name Role Phone Stalin JOY, Shalonda Unavailable Unavailable Procedures Procedure Date ELECTROCARDIOGRAM REPORT INTERP & REPORT ONLY ELECTROCARDIOGRAM REPORT INTERP & REPORT ONLY ELECTROCARDIOGRAM REPORT INTERP & REPORT ONLY Advance Directives Directive Yes / No Effective Date File Name No Information Encounters Encounter Description Practice Location Reason(s) For Visit Diagnoses Date Provider Providers Copied on Encounter [address], [address], [address], tel:[phone] [facility] No Information Stalin Liz. [address], [address], [place], [address]. tel:[phone] Referring Provider: Shalonda Gant, [address], [place], [address] . tel:[phone] [facility], [address], [address], tel:[phone] [facility] No Information Stalin Liz. [address], [address], [address]. tel:[phone] Referring Provider: Shalonda Gant, [address], [place], [address] . tel:[phone] [id number] - [facility], [address], [place], [place], [address], tel:[phone] [facility] No Information Ruma Garcia. [address], [place], [place], [address]. tel:[phone] Referring Provider: Jose Hendrix , [address], [place], [address] . tel:[phone] Family History Family Member Type Diagnosis Age At Onset No Information Payers Payer name Insurance type Covered alliance party ID Authoruyen dobbins(s) [employer] [id number] Tenlaare/Medicaid [facility] [id number] Social History Type Description Quantity Date Captured [...]
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
--- OUTSIDE RECORDS SUMMARY | 2024-06-16 10:28 | XMS_ITS | Continuity of Care Document ---
Author Organization [facility] Address [address] [place] [address] Phone Care Team Providers Care Touch Up Painter Name Role Phone Diana Ribeiro MD Unavailable Unavailable Advance Directives Directive Yes / No Effective Date File Name No Information Encounters Encounter Description Practice Location Reason(s) For Visit Diagnoses Date Provider Providers Copied on Encounter [facility], [address], [place], [place], [address], [place] tel:[phone] ([facility]) On license of [facility] No Information Quintinlenin Ortiz. [address], [place], [address] , [place]. tel:[phone] Family History Family Member Type Diagnosis Age At Onset No Information Payers Payer name Insurance type Covered libertarian ID Authoriza tiwilder(s) [facility] 015 MB [id number] Social History Type Description Quantity Date Captured [...]
--- NOTE | 2024-06-16 10:56 | ECG_ITS ---
Test Reason : DIZZY Blood Pressure : */* mmHG Vent. Rate : 83 BPM Atrial Rate : 83 BPM P-R Int : 188 ms QRS Dur : 84 ms QT Int : 360 ms P-R-T Axes : 45 41 34 degrees QTcB Int : 423 ms Normal sinus rhythm Normal ECG When compared with ECG of 03-Jun-2024 14:14, No significant change was found Referred By: Shane Douglass Electronically Signed By: ELI GRISSOM
--- NOTE | 2024-06-16 11:39 | ED.GENADULT ---
HPI - General Adult General Chief complaint: Recheck/Abnormal Lab/Rx Stated complaint: High Blood Pressure Time Seen by Provider: 06/16/24 10:30 History of Present Illness HPI narrative: Patient's complaint is related to his blood pressure, at home it was high and he took his medication which is new over the last week of amlodipine valsartan combination tablet and then he felt some dizziness so he came to the ER, the dizziness is described as feeling lightheaded he never felt like he would faint he did not pass out there were no palpitations no chest pain no sweating he was not exerting there was no weakness of any limb no difficulty balancing or speaking His doctor has been trying to control his blood pressure he has had hypertension for some time and it was running high so he started his new medication in the past week Right now he feels fine he is in his normal state of health he does not feel dizzy and he is asymptomatic Related Data Previous Rx's ?Medication ?Instructions ?Recorded albuterol sulfate 90 mcg/actuation 2 puff inhalation Q6H PRN 05/27/24 aerosol inhaler shortness of breath or wheezing #8.5 grams amlodipine 5 mg tablet 5 mg PO DAILY #30 tabs 05/27/24 azithromycin 250 mg tablet 250 mg PO DAILY 4 days #4 tabs 05/27/24 (Zithromax) benzonatate 200 mg capsule 200 mg PO TID PRN cough #30 caps 05/27/24 cefuroxime axetil 500 mg tablet 500 mg PO BID 7 days #14 tabs 05/27/24 Allergies Allergy/AdvReac Type Severity Reaction Status Date / Time atovaquone [From Mepron] Allergy Rash Verified 06/16/24 10:13 Penicillins Allergy Rash Verified 06/03/24 14:43 [facility], [facility] Past Medical History Source: nursing notes reviewed Medical History HIV (human immunodeficiency virus infection) Social History Social History Advance Directives: No Advance Directives Information Provided: Yes Physical Exam ED Vital Signs: Vital Signs - 24 hr 06/16/24 10:10 Temperature 97.8 F Pulse Rate 97 Respiratory Rate 18 Blood Pressure 107/75 Pulse Oximetry 99 Oxygen Delivery Method Room Air BMI result Body Mass Index 25.2 General appearance come comfortable cooperative no acute distress Eyes pupils equal round reactive to light extraocular motions are intact Neck is supple Chest is clear to auscultation bilateral Heart no murmur Extremities full range motion x4 Neuro gait balance are normal, interaction comprehension expression are normal, no facial asymmetry, cranial nerves 2-12 intact as tested, cerebellar exam normal, motor is 5/5 x4 Course Course Course Narrative: Patient is asymptomatic now An EKG was done because of his brief dizzy episode, the EKG was a normal sinus rhythm with a rate of [address] changes no acute arrhythmia I discussed with patient the possibility that new medication could be causing the dizziness, at times this may resolve as you continue the medication but I also advised him to use his home blood pressure cuff to check his blood pressure after taking the medication if he is symptomatic and to keep a log of his blood pressure readings for his doctor He will follow with primary doctor for further evaluation of his blood pressure and medication Discharge Plan Discharge Clinical Impression: Hypertension Patient Disposition: Home, Self-Care Additional Instructions: Your EKG was fine and your blood pressure was in the normal range during her visit to the ER and her symptoms were gone Some dizziness is a possible side effect of a new blood pressure medication this should be discussed with your doctor Return to the ER any time for chest pain fainting difficulty breathing any worse condition or any concerns Prescriptions: No Action benzonatate 200 mg capsule 200 mg PO TID PRN (Reason: cough) Qty: 30 0RF cefuroxime axetil 500 mg tablet 500 mg PO BID 7 Days Qty: 14 0RF azithromycin [Zithromax] 250 mg tablet 250 mg PO DAILY 4 Days Qty: 4 0RF Rx Instructions: start on day 2 of therapy amlodipine 5 mg tablet 5 mg PO DAILY Qty: 30 0RF albuterol sulfate 90 mcg/actuation HFA aerosol inhaler 2 puff inhalation Q6H PRN (Reason: shortness of breath or wheezing) Qty: 8.5 0RF Print Language: Frisian
[2024-06-16 11:41] VITALS: BP 107/75; PULSE 97; RESP 18; TEMP 36.6; O2SAT 99
== END 2024-06-16 11:45 | disposition home or self-care (01) ==
PROVIDERS: Emergency Provider Emergency Medicine; PCP Family Medicine
DX: R79.89 Other specified abnormal findings of blood chemistry (principal); I10 Essential (primary) hypertension; R42 Dizziness and giddiness; Z79.899 Other long term (current) drug therapy
CPT/HCPCS: 93005; 99283

== ENCOUNTER → 2024-06-16 10:56 | Outpatient (BNV) | payer MEDICARE, SELFPAY | PROVIDERS: Emergency Provider Emergency Medicine; PCP Family Medicine; Visit Provider Internal Medicine | DX: R42 Dizziness and giddiness (principal) | CPT/HCPCS: 93010 ==